=== PATIENT | female | born 1940 | race Caucasian/White ===

== ENCOUNTER 2021-08-06 09:45 | Emergency (ER) | payer OTHER ==
[~2021-08-06] VITALS: Ht 152.4 cm; Wt 68.0 kg
[~2021-08-06 09:45] MED LIST: ALBUTEROL1.25 MG/3 IH; ATROVENT HFA12.9 GM IH; LEVOTHYROXINE25 MCG; MEDROLPACK PO; METOPROLOL SUCC25 MG; TUSSI-PRES LIQ118 ML PO
[2021-08-06] MEDS ORDERED: NEXIUM2.5 MG PO (10:05)
== END 2021-08-06 12:10 | disposition home or self-care (01) ==
LOC: ER 09:45
DX: S09.8XXA Other specified injuries of head, initial encounter (principal); W19.XXXA Unspecified fall, initial encounter; Y93.89 Activity, other specified; Y92.89 Other specified places as the place of occurrence of the external cause; I10 Essential (primary) hypertension

== ENCOUNTER 2021-11-02 21:48 | Inpatient (IN) | payer OTHER ==
[~2021-11-02] VITALS: Ht 154.9 cm; Wt 68.0 kg
[~2021-11-02 21:48] MED LIST changes: +CLEOCIN HCL150 MG PO; +CLOTRIMAZOLE10 MG MM; +FLUOXETINE 20 MG; +NEXIUM 24HR20 MG; +NEXIUM2.5 MG PO; +ORASEP SPRAY30 ML MM; +UNITHROID112 MCG; +[UNRECOGNIZED DRUG - OTHER]
--- NOTE | 2021-11-03 00:10 | NUR ---
SE RECIBE PTE FEMENINA, ALERTA Y ORIENTADA X3, QUIEN REFIERE MALESTAR GENERAL DOLOR DE JOSEF Y FALTA DE APETITO. LA MISMA EXPRESA TAMBIEN SENTIR DIFICULTAD PARA RESPIRAR. SE GABI S/V Y PRESION ARTERIAL EN MAQUINA ARROJA 66/38 POR LO QUE SE LÁZARO MANUAL Y ARROJA 80/45 SE CONSULTA CON DRA. ROOT Y AL MISMA ORDENA EKG Y PRESENTAR PTE EN AREA DE OBSERVACION A MEDICO EN TURNO.
--- NOTE | 2021-11-03 01:07 | NUR ---
EVALUA PTE. SE EDUCA SOBRE [place] MEDICO EL CUAL REFIERE COMPRENDER. SE COLECTAN MUESTRAS DE LABORATORIO BAJO MEDIDAS ASEPTICAS. SE ADMINISTRAN MEDICAMENTOS Y IV'S YAYO ORDEN MEDICA. SE COORDINA DARRELL X. PTE MANEJADA POR .
--- NOTE | 2021-11-03 05:59 | NUR ---
SE MIDE B/P:83/43MMHG. SE NOTIFICA A EL CUAL INDICA QUE SE CONTINUE CON IV'S 0.9NSS BAJANDO A 75ML/HR.
--- NOTE | 2021-11-03 07:29 | NUR ---
SE RECIBE PACIENTE DEL TURNO ANTERIOR ALERTA Y ORIENTADO X3 UBICADO EN SARA CON BARANDAS ELEVADAS POR PRECAUCION A CAIDAS. PACIENTE CANALIZADA BAJANDO 0.9% NSS A 150ML/HR. PENDIENTE CONSULTA CON DR. Melany KENDALL SE MANTIENE PACIENTE BAJO OBSERVACION POR CAMBIOS EN [place] MEDICO.
[2021-11-04] MEDS ORDERED: ATACAND HCT 321 EAC1 (10:57)
[2021-11-04] MEDS ORDERED: PROZAC20 MG (10:58)
== END 2021-11-23 17:30 | disposition home or self-care (01) | DRG 682 ==
LOC: ER 21:48 → ICU-2 11-03 12:05 → MEDJ 11-03 12:05
PROVIDERS: ADMIT Specialist; ATTEND Specialist
PROC: BT42ZZZ Ultrasonography of Left Kidney (ICD-10-PCS; principal; 2021-11-03)
PROC: BW21ZZZ Computerized Tomography (CT Scan) of Abdomen and Pelvis (ICD-10-PCS; 2021-11-04)
PROC: 30233N1 Transfusion of Nonautologous Red Blood Cells into Peripheral Vein, Percutaneous Approach (ICD-10-PCS; 2021-11-05)
PROC: BD24YZZ Computerized Tomography (CT Scan) of Colon using Other Contrast (ICD-10-PCS; 2021-11-07)
PROC: 02HV33Z Insertion of Infusion Device into Superior Vena Cava, Percutaneous Approach (ICD-10-PCS; 2021-11-16)
DX: N17.9 Acute kidney failure, unspecified (principal); J18.9 Pneumonia, unspecified organism; K65.8 Other peritonitis; K55.059 Acute (reversible) ischemia of intestine, part and extent unspecified; U07.1 COVID-19; A04.71 Enterocolitis due to Clostridium difficile, recurrent; A04.5 Campylobacter enteritis; A04.8 Other specified bacterial intestinal infections; A04.6 Enteritis due to Yersinia enterocolitica; R57.9 Shock, unspecified; N39.0 Urinary tract infection, site not specified; I88.0 Nonspecific mesenteric lymphadenitis; E87.6 Hypokalemia; D50.9 Iron deficiency anemia, unspecified; N18.30 Chronic kidney disease, stage 3 unspecified; I12.9 Hypertensive chronic kidney disease with stage 1 through stage 4 chronic kidney disease, or unspecified chronic kidney disease; B96.89 Other specified bacterial agents as the cause of diseases classified elsewhere; E03.9 Hypothyroidism, unspecified; F32.9 Major depressive disorder, single episode, unspecified